=== PATIENT | female | born 1995 | race Caucasian/White ===

== ENCOUNTER 2021-12-27 13:23 | Emergency (ER) | payer OTHER ==
[2021-12-27 16:10] LABS: HEMOGLOBIN 12.3 gm/dl (12.3-15.3); RED BLOOD COUNT 4.1 M/UL (4.00-5.10); WHITE BLOOD COUNT 11.4 K/UL (4.5-11.0)
[2021-12-27 16:31] LABS: BUN/CREATININE RATIO 13 (0-10)
== END 2021-12-27 20:05 | disposition home or self-care (01) ==
LOC: ER1 13:23
PROVIDERS: Physician Assistant
DX: R10.9 Unspecified abdominal pain (principal); R42 Dizziness and giddiness; Z20.822 Contact with and (suspected) exposure to COVID-19
CPT/HCPCS: 0240U; 80053; 81001; 83605; 83690; 84702; 85025; 87040; 87077; 87086; 87186; 96374; 99284; J1885; Q9967